=== PATIENT | female | born 1975 | race Native Hawaiian/Other Pacific Islander ===

== ENCOUNTER 2021-06-14 10:10 | Outpatient (CLI) | payer OTHER ==
[~2021-06-14] VITALS: Ht 165.1 cm; Wt 129.3 kg
== END 2021-06-14 23:00 | disposition home or self-care (01) ==
LOC: INF 10:10
PROVIDERS: ATTEND Internal Medicine Endocrinology, Diabetes & Metabolism
DX: Z23 Encounter for immunization (principal); U07.1 COVID-19
CPT/HCPCS: 96365; M0244

== ENCOUNTER 2021-08-13 15:12 | Emergency (ER) | payer OTHER ==
[~2021-08-13] VITALS: Ht 165.1 cm; Wt 129.3 kg
[2021-08-13 15:17] VITALS: TEMP 98.5
[2021-08-13 16:30] VITALS: BP 142/85
== END 2021-08-13 16:30 | disposition home or self-care (01) ==
LOC: ED 15:12
DX: M79.672 Pain in left foot (principal); G89.29 Other chronic pain
CPT/HCPCS: 96372; 99283; J1885; J2930